=== PATIENT | female | born 1970 | race Caucasian/White ===

== ENCOUNTER 2017-09-24 09:00 | Outpatient (RCR) | payer MEDICAID, SELFPAY ==
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
--- NOTE | 2017-09-24 11:38 | BH.SGPN ---
Service Group Progress Note - Session Psychotherapy Session #1 Date Open:: 09/24/17 Time Started:: 09:08 Time Stopped:: 09:58 Targeted Problem #:: 1 Type of Group:: Process - 6 group members Goal of Group:: The goal of today's group was to check-in with client's mood, stressors, and positives, review homework and introduce topic for the day. Client Response/Progress/Benefit:: Client reported about a year ago she attended this IOP program however did not complete it. Client shared 1 of her goals is to attend the program consistently and finish it. Client shared over the past year [place] the country with her boyfriend which has been positive because she does not like to be in the city. However, client reported nothing else is really changed because she continues to sleep in order to avoid, isolate, and her relationships are still not positive. Client did also express she has been having some concerns that her belongings consistently keep going missing which makes her nervous and anxious as to what is happening. Client seemed to benefit from support from peers. Client's first day in [facility]. Eye Contact:: Fair Motor Activity:: Appropriate Appearance:: Casual Speech:: Appropriate Mood:: Anxious, Dysthymic Affect:: Constricted Thoughts:: Linear, No evidence of hallucinations/delusions noted Staff Interventions:: Therapist used open-ended questions to elicit information about client's current stressors and mood state. Therapist was supportive by using active listening and reflection.
--- NOTE | 2017-09-24 11:41 | BH.SGPN_ITS ---
Service Group Progress Note - Session Psychotherapy Session #1 Date Open:: 09/24/17 Time Started:: 09:08 Time Stopped:: 09:58 Targeted Problem #:: 1 Type of Group:: Process - 6 group members Goal of Group:: The goal of today's group was to check-in with client's mood, stressors, and positives, review homework and introduce topic for the day. Client Response/Progress/Benefit:: Client reported about a year ago she attended this IOP program however did not complete it. Client shared 1 of her goals is to attend the program consistently and finish it. Client shared over the past year she [place] the country with her boyfriend which has been positive because she does not like to be in the city. However, client reported nothing else is really changed because she continues to sleep in order to avoid , isolate, and her relationships are still not positive. Client did also express she has been having some concerns that her belongings consistently keep going missing which makes her nervous and anxious as to what is happening. Client seemed to benefit from support from peers. Client's first day in [facility]. Eye Contact:: Fair Motor Activity:: Appropriate Appearance:: Casual Speech:: Appropriate Mood:: Anxious, Dysthymic Affect:: Constricted Thoughts:: Linear, No evidence of hallucinations/delusions noted Staff Interventions:: Therapist used open-ended questions to elicit information about client's current stressors and mood state. Therapist was supportive by using active listening and reflection.
--- NOTE | 2017-09-24 14:36 | BH.SGPN ---
Service Group Progress Note - Session Psychotherapy Session #2 Date Open:: 09/24/17 - 5 group members Time Started:: 10:11 Time Stopped:: 11:06 Targeted Problem #:: 1 Type of Group:: Illness Management Goal of Group:: The goal of group was to increase understanding of coping strategies and impact problems have on self. Another goal was to practice utilizing coping skills in the moment. Client Response/Progress/Benefit:: Client responded well to session, active participant. Client connected with the quote sharing we make problems bigger if we dont cope with them. Client reported coping skills are how we process things and that one learns healthy and unhealthy coping skills from family, peers, and therapy. Client stated unhealthy coping skills can be drugs and alcohol. Client did well in the activity and appeared to connect that having a good base and balance of coping skills is important for mental wellness. Client agreed with group that one's coping skill base should include internal and external supports. Client shared her base is not balanced as client relies on her internal coping mostly as she lacks external support. Client reported wanting to learn healthier internal coping skills and increase her social supports. Client appeared to benefit from increasing awareness of how coping skills impact mental health. Progress noted in clients increased awareness. Clients first day, appears engaged and motivated, to continue IOP to promote mood stability. Eye Contact:: Good Motor Activity:: Appropriate Appearance:: Casual Speech:: Appropriate Mood:: Anxious, Dysthymic Affect:: Constricted Thoughts:: Linear, No evidence of hallucinations/delusions noted Staff Interventions:: Therapist facilitated the group discussion about coping strategies. Therapist provided group members with folders and gave them the challenge to work together and build the tallest tower with the given supplies. Therapist utilized the activity as a tool to process what it feels like when dealing with problems and what strategies they used to cope throughout activity. Psychotherapy Session #3 Date Open:: 09/24/17 - 6 group members Time Started:: 11:15 Time Stopped:: 12:15 Targeted Problem #:: 1 Type of Group:: Functional Skills Development Goal of Group:: Goal was to increase clients self-awareness on their use of coping strategies and increase repertoire of healthy coping strategies. Client Response/Progress/Benefit:: Client responded well to session, providing insight to discussion. Client reported she often relies on internal coping skills, even though they have not always been healthy, and would like to learn how to better cope with stress. Client helped the group process the pros and cons of the categories of coping skills and identify different strategies for each category. Client reported it is good to have a balance of all the coping skills, so one does not only distract from the problem. Client created a coping skills menu to increase her repertoire of healthy skills including: learning something new, walking, singing, cooking a meal for her health needs, and writing down negative thoughts and challenging them. Client appeared to benefit from improving her awareness of the different types of coping skills as well as increasing her coping skill repertoire. Progress limited as it is clients first day, to continue IOP to prevent decompensation and increase mood stability. Eye Contact:: Fair Motor Activity:: Appropriate Appearance:: Casual Speech:: Appropriate Mood:: Anxious, Dysthymic Affect:: Constricted Thoughts:: Linear, No evidence of hallucinations/delusions noted Staff Interventions:: Therapist facilitated discussion about the different types of coping skills. Therapist led group in an activity in which group members were asked to brainstorm coping strategies that fit in each coping skill category. Therapist reviewed each coping strategy with the group and led a discussion about whether the coping strategies identified were healthy or unhealthy. Therapist provided homework in which group members creating a coping skills menu and would practice two skills a day.
--- NOTE | 2017-09-24 14:42 | BH.SGPN_ITS ---
Service Group Progress Note - Session Psychotherapy Session #2 Date Open:: 09/24/17 - 5 group members Time Started:: 10:11 Time Stopped:: 11:06 Targeted Problem #:: 1 Type of Group:: Illness Management Goal of Group:: The goal of group was to increase understanding of coping strategies and impact problems have on self. Another goal was to practice utilizing coping skills in the moment. Client Response/Progress/Benefit:: Client responded well to session, active participant. Client connected with the quote sharing we make problems bigger if we don?t cope with them.? Client reported coping skills are ?how we process things? and that one learns healthy and unhealthy coping skills from family, peers, and therapy. Client stated unhealthy coping skills can be drugs and alcohol. Client did well in the activity and appeared to connect that having a good base and balance of coping skills is important for mental wellness. Client agreed with group that one's coping skill base should include internal and external supports. Client shared her base is not balanced as client relies on her internal coping mostly as she lacks external support. Client reported wanting to learn healthier internal coping skills and increase her social supports. Client appeared to benefit from increasing awareness of how coping skills impact mental health. Progress noted in client?s increased awareness. Client?s first day, appears engaged and motivated, to continue IOP to promote mood stability. Eye Contact:: Good Motor Activity:: Appropriate Appearance:: Casual Speech:: Appropriate Mood:: Anxious, Dysthymic Affect:: Constricted Thoughts:: Linear, No evidence of hallucinations/delusions noted Staff Interventions:: Therapist facilitated the group discussion about coping strategies. Therapist provided group members with folders and gave them the challenge to work together and build the tallest tower with the given supplies. Therapist utilized the activity as a tool to process what it feels like when dealing with problems and what strategies they used to cope throughout activity. Psychotherapy Session #3 Date Open:: 09/24/17 - 6 group members Time Started:: 11:15 Time Stopped:: 12:15 Targeted Problem #:: 1 Type of Group:: Functional Skills Development Goal of Group:: Goal was to increase client?s self-awareness on their use of coping strategies and increase repertoire of healthy coping strategies. Client Response/Progress/Benefit:: Client responded well to session, providing insight to discussion. Client reported she often relies on internal coping skills, even though they have not always been healthy, and would like to learn how to better cope with stress. Client helped the group process the pros and cons of the categories of coping skills and identify different strategies for each category. Client reported it is good to have a balance of all the coping skills, so one does not only distract from the problem. Client created a coping skills menu to increase her repertoire of healthy skills including: learning something new, walking, singing, cooking a meal for her health needs, and writing down negative thoughts and challenging them. Client appeared to benefit from improving her awareness of the different types of coping skills as well as increasing her coping skill repertoire. Progress limited as it is client?s first day, to continue IOP to prevent decompensation and increase mood stability. Eye Contact:: Fair Motor Activity:: Appropriate Appearance:: Casual Speech:: Appropriate Mood:: Anxious, Dysthymic Affect:: Constricted Thoughts:: Linear, No evidence of hallucinations/delusions noted Staff Interventions:: Therapist facilitated discussion about the different types of coping skills. Therapist led group in an activity in which group members were asked to brainstorm coping strategies that fit in each coping skill category. Therapist reviewed each coping strategy with the group and led a discussion about whether the coping strategies identified were healthy or unhealthy. Therapist provided homework in which group members creating a coping skills menu and would practice two skills a day.
--- NOTE | 2017-09-24 15:03 | BH.MDN_ITS ---
Multi-Disciplinary Note - Note 30-min Individual Time Started:: 12:17 Date: 09/24/17 Purpose of session/treatment goals addressed:: Purpose of today's session was to begin building rapport with Client as well as gather additional information regarding Client current symptoms, functioning and stressors, as well as means of coping and supports. Other topics include expectations for treatment and individual treatment goal planning. Eye Contact:: Good Motor Activity:: Restless Appearance:: Casual Speech:: Appropriate Mood:: Anxious, Depressed Affect:: Congruent Thoughts:: Other - preoccupied, No evidence of hallucinations/delusions noted Staff Interventions:: Therapist provided a safe environment for CLient to discuss current anxieties and concerns associated with current living situation. Asked open-ended and furthering questions to ellicit additional information regarding current functioning, symptoms, and supports. Applied Motivational Interviewing techniques to determine Client problem recognition and motivation to improve management of mental health symptoms. Worked with client to explore and begin establishing IOP treatment goals. Client Response:: Client reported she is doing okay in her current living situation; however, continues to experience significant ups and downs in current relationship with her partner of 5 years. Client indicates that the ongoing mistrust and failed communication within her relationship has caused Client significant stress and anxiety. Client indicates becoming preoccupied with the thought that her partner may be monitoring her via social media and through her cell phone. CLient went into detail regarding the research she has done and reasons she believes her phone is being monitored. CLient indicated confronting her partner about these thoughts but reports he denies any knowledge of client accusations. Client additionally expressed at times believing her partner has elicited help in tracking her from her old friend and roommate for roommate to seek revenge from a previous falling out. Client's thought patterns appeared mostly fixated on obtaining answers from her partner and friend related to these accusations. Client reports worry has escalated to her smashing my old phone and changing email multiple times to prevent ongoing monitoring. CLient expresses some insight into paranoia however intensity and severity of these thoughts remains unclear. Client understandable that IOP program and IOP therapist role is not to help her figure out if her partner is acting as Client suspects. CLient indicates wanting to work on developing skills while in IOP program, she reports specifically desiring focus on decreasing anxiety and improving ability to challenge negative/ distorted thinking patterns. Risks/Concerns:: No risks or concerns at this time. CLient denies suicidal ideation, plan, or intent as of 09/24/17 and indicates maintaining sobriety. Client is currently not taking any prescribed medications which will be reviewed when CLient meets with psychiatrist during next appointment, 09/26/17. CLient indicates her daughters and desire to improve overall mental health as motivations for change. Indicates ability to maintain safety and is aware of and willing to utilize local crisis resources should she need to. Progress Toward Goals/Plan:: Began to develop goals for treatment plan. Client progress is limited as this was her first day in IOP program. Client reports being glad she decided to return to program and expressed a desire to improve ability to use healthy skills for managing mental health symptoms. Client reports willingness to try new options for managing anxiety and stress outside of unhealthy coping mechanisms. Recommended continued IOP tx to maintain safety , stabilize emotions, and prevent decompensation. Time Stopped:: 12:51
--- NOTE | 2017-09-24 15:10 | BH.MTP ---
Master Treatment Plan - Patient Information Program Physician:: Vidya Benito Primary Therapist:: HERI Prajapati - Psychiatric Diagnoses Psychiatric Diagnoses:: Bipolar II Diagnosis Code(s):: F31.81 - Estimated LOS Estimated LOS (in weeks):: 6 Problem/Goal #1 - Problem/Goal #1 Stated Goal:: Client will increase mood stability and decrease depressive symptoms that cause anger/irritability, isolation, and suicidal ideation due to Bipolar 2 through Intensive Outpatient Program. Description of Barriers: Client has had significant difficulty with continuing to follow through with counseling in the past, she has difficulties in justifying not attending or convinces herelf that she does not need the help. Client additionally discussed struggling with trusting others and beliefs that others do not have her best interests at heart. This could make establishing rapport and encouraging CLient to continue engaging in counseling difficult. Client reposts limites supports and indicates that her largest support, CLient's significant other, is not supportive of her attending counseling for her managing mental health sx. Transportation and isolation continues to be an ongoing barrier to client's treatment. Functional Impact: Client's ongoing depression effects daily functioning as she reports difficulties in maintaining motivation and often isolates from others. Client additionally shared not completing daily tasks due to sleeping for large portions of the day which increases negative self talk and impacts self-esteem levels. Goal Relevant Strengths/Supports: Client is able to identify personal strengths and expresses being motivated to make changes. She has previous experience with engaging in counseling services and is able to identify benefits of developing health skills for managing mental health symptoms. - Objectives Objective #1 Stated Objective: Client will identify and replace 2-3 negative thinking patterns that mediate feelings of hopelessness and helplessness Interventions: Through groups and individual therapy, pt. will be provided with education on cognitive distortions, mistaken beliefs, and identifying and combating negative self-talk. Therapist will help pt. explore connection between thoughts, feelings, and actions. Discharge Criteria: Pt. will be able to identify 2-3 negative thinking patterns and be able to effectively stop, challenge, or cope with those negative thoughts. Target Date: 11/05/17 Review Date: 10/29/17 Objective #2 Stated Objective: Client will identify 2-3 triggers and 2-3 new ways to navigate stressful situations rather than becoming irrational and losing temper. Interventions: Therapist will use motivational interviewing, and help client make changes in life to encourage more responsible and rational behavior, ways to manage emotions in stressful situations, and feel more confident in himself. Discharge Criteria: Client will have met this goal when he is able to describe less than 2 irrational reactions in a week, and at least 2 new ways to handle these stressful situations. Target Date: 11/05/17 Review Date: 10/29/17 Problem/Goal #2 - Problem/Goal #2 Stated Goal:: Stabilize anxiety level while increasing ability to function and decreasing ruminative thoughts on a daily basis through Intensive Outpatient Program. Description of Barriers: Client has had significant difficulty with continuing to follow through with counseling in the past, she has difficulties in justifying not attending or convinces herelf that she does not need the help. Client additionally discussed struggling with trusting others and beliefs that others do not have her best interests at heart. This could make establishing rapport and encouraging CLient to continue engaging in counseling difficult. Client reposts limites supports and indicates that her largest support, CLient's significant other, is not supportive of her attending counseling for her managing mental health sx. Transportation and isolation continues to be an ongoing barrier to client's treatment. Functional Impact: Client reports that her anxiety has impacted her ability to function at baseline as she has often isolated or minimized contact with others due to increased fear/paraniod thoughts regarding other's intentions. CLient indicates increase ruminating and intrusive thoughts have impacted her relationships and created additional tension with supports. Goal Relevant Strengths/Supports: Client is able to identify personal strengths and expresses being motivated to make changes. She has previous experience with engaging in counseling services and is able to identify benefits of developing health skills for managing mental health symptoms. - Objectives Objective #1 Stated Objective: Client will identify 2-3 anxiety triggers and 2 coping skills to use when feeling anxious. Interventions: Therapist will encourage client to use self-awareness strategies and assist client in developing coping strategies to manage ruminating thoughts. Discharge Criteria: Client will have met this goal when can identify at least 2 triggers and 2 ways to cope with anxieties. Target Date: 11/05/17 Review Date: 10/29/17 Objective #2 Stated Objective: Client will learn and implement 2-3 effective communication skills to empower client to communicate thoughts and feelings. Interventions: Therapist will teach client effective communication skills and will provide homework for client to practice communication skills outside of sessions. Discharge Criteria: Client will have successfully achieved goal when she can identify at least 2 effective communication strategies and implement these on a consistent basis. Target Date: 11/05/17 Review Date: 10/29/17
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
--- NOTE | 2017-09-26 08:16 | BH.COMM ---
Communication Note - Communication with Client Communication Note: Pt left message this AM cancelling for today therefore was not able to be seen by psychiatry. Reports that she would attend her next scheduled IOP session which is 10/06/17. Transportation is an issue with pt and she is using hospital based transportation. Will attempt to contact pt next week to discuss if she is able to arrange transportation to program earlier than 10/06/17.
--- NOTE | 2017-09-26 14:37 | BH.COMM ---
Communication Note - Communication with Client Communication Note: Client called
--- NOTE | 2017-10-27 15:07 | BH.MTP_ITS ---
Master Treatment Plan - Patient Information Program Physician:: Vidya Benito Primary Therapist:: HERI Prajapati - Psychiatric Diagnoses Psychiatric Diagnoses:: Bipolar II Diagnosis Code(s):: F31.81 - Estimated LOS Estimated LOS (in weeks):: 6 Problem/Goal #1 - Problem/Goal #1 Stated Goal:: Client will increase mood stability and decrease depressive symptoms that cause anger/irritability, isolation, and suicidal ideation due to Bipolar 2 through Intensive Outpatient Program. Description of Barriers: Client has had significant difficulty with continuing to follow through with counseling in the past, she has difficulties in justifying not attending or convinces herelf that she does not need the help. Client additionally discussed struggling with trusting others and beliefs that others do not have her best interests at heart. This could make establishing rapport and encouraging CLient to continue engaging in counseling difficult. Client reposts limites supports and indicates that her largest support, CLient' s significant other, is not supportive of her attending counseling for her managing mental health sx. Transportation and isolation continues to be an ongoing barrier to client's treatment. Functional Impact: Client's ongoing depression effects daily functioning as she reports difficulties in maintaining motivation and often isolates from others. Client additionally shared not completing daily tasks due to sleeping for large portions of the day which increases negative self talk and impacts self-esteem levels. Goal Relevant Strengths/Supports: Client is able to identify personal strengths and expresses being motivated to make changes. She has previous experience with engaging in counseling services and is able to identify benefits of developing health skills for managing mental health symptoms. - Objectives Objective #1 Stated Objective: Client will identify and replace 2-3 negative thinking patterns that mediate feelings of hopelessness and helplessness. Interventions: Through groups and individual therapy, pt. will be provided with education on cognitive distortions, mistaken beliefs, and identifying and combating negative self-talk. Therapist will help pt. explore connection between thoughts, feelings, and actions. Discharge Criteria: Pt. will be able to identify 2-3 negative thinking patterns and be able to effectively stop, challenge, or cope with those negative thoughts. Target Date: 11/05/17 Review Date: 10/29/17 Objective #2 Stated Objective: Client will identify 2-3 triggers and 2-3 new ways to navigate stressful situations rather than becoming irrational and losing temper. Interventions: Therapist will use motivational interviewing, and help client make changes in life to encourage more responsible and rational behavior, ways to manage emotions in stressful situations, and feel more confident in himself. Discharge Criteria: Client will have met this goal when he is able to describe less than 2 irrational reactions in a week, and at least 2 new ways to handle these stressful situations. Target Date: 11/05/17 Review Date: 10/22/17 Problem/Goal #2 - Problem/Goal #2 Stated Goal:: Stabilize anxiety level while increasing ability to function and decreasing ruminative thoughts on a daily basis through Intensive Outpatient Program. Description of Barriers: Client has had significant difficulty with continuing to follow through with counseling in the past, she has difficulties in justifying not attending or convinces herelf that she does not need the help. Client additionally discussed struggling with trusting others and beliefs that others do not have her best interests at heart. This could make establishing rapport and encouraging CLient to continue engaging in counseling difficult. Client reposts limites supports and indicates that her largest support, CLient' s significant other, is not supportive of her attending counseling for her managing mental health sx. Transportation and isolation continues to be an ongoing barrier to client's treatment. Functional Impact: Client reports that her anxiety has impacted her ability to function at baseline as she has often isolated or minimized contact with others due to increased fear/paraniod thoughts regarding other's intentions. CLient indicates increase ruminating and intrusive thoughts have impacted her relationships and created additional tension with supports. Goal Relevant Strengths/Supports: Client is able to identify personal strengths and expresses being motivated to make changes. She has previous experience with engaging in counseling services and is able to identify benefits of developing health skills for managing mental health symptoms. - Objectives Objective #1 Stated Objective: Client will identify 2-3 anxiety triggers and 2 coping skills to use when feeling anxious. Interventions: Therapist will encourage client to use self-awareness strategies and assist client in developing coping strategies to manage ruminating thoughts. Discharge Criteria: Client will have met this goal when can identify at least 2 triggers and 2 ways to cope with anxieties. Target Date: 11/05/17 Review Date: 10/22/17 Objective #2 Stated Objective: Client will learn and implement 2-3 effective communication skills to empower client to communicate thoughts and feelings. Interventions: Therapist will teach client effective communication skills and will provide homework for client to practice communication skills outside of sessions. Discharge Criteria: Client will have successfully achieved goal when she can identify at least 2 effective communication strategies and implement these on a consistent basis. Target Date: 11/05/17 Review Date: 10/29/17
== END 2017-10-02 23:59 ==
LOC: BHIOP 09:00
PROVIDERS: Family Provider Student in an Organized Health Care Education/Training Program; PCP Student in an Organized Health Care Education/Training Program; Visit Provider Psychiatry & Neurology Psychiatry
DX: F31.81 Bipolar II disorder (principal)
CPT/HCPCS: H0035; H2020; 90832

== ENCOUNTER 2017-10-06 09:00 | Outpatient (RCR) | payer MEDICAID, SELFPAY ==
--- NOTE | 2017-10-06 09:00 | DT_ITS ---
This patient was seen during an EMR downtime October 06, 2017 - October 13, 2017. This patient may have a combination of paper and electronic documentation or all paper documentation. All documentation is viewable within the e-chart portion of [employer] for each patient visit.
--- NOTE | 2017-10-06 15:19 | BH.SGPN ---
Service Group Progress Note - Session Psychotherapy Session #1 Date Open:: 10/06/17 Time Started:: 09:07 Time Stopped:: 10:20 Targeted Problem #:: 1 Type of Group:: Process - 9 participants Behaviors/Verbalizations/Mental Status:: The goal of today's group was to check-in with clients and review homework from previous group session. Client Response/Progress/Benefit:: Client was a well engaged participant and positive throughout. She expressed feeling happy today as she had been able to see one of her daughters over the weekend and may have the opportunity to spend time with another daughter later today. She shared that the visit had been especially positive as her daughter appears to be sober and indicated she would be starting a new job. Client shared that seeing her kids doing well is a major motivating factor to begin focusing on her own mental health as well. Client making progress in her ability to recognize that she cannot be there for her children if she doesnt take the time to address her own mental health needs and benefitted from utilizing her time to process this with the group. She is recommended continued IOP to prevent decompensation and begin working on establishing consistent healthy skills client may use when experiencing emotional dysregulation. Eye Contact:: Good Motor Activity:: Appropriate Appearance:: Casual Speech:: Appropriate Mood:: Euthymic Affect:: Congruent Thoughts:: Linear, Logical, No evidence of hallucinations/delusions noted Staff Interventions:: Therapist facilitated the group session by asking open ended questions that encouraged group members to discuss their weekend and current mood state. Assisted group members in the review of their homework from previous group session.
--- NOTE | 2017-10-10 17:24 | BH.SGPN ---
Service Group Progress Note - Session Psychotherapy Session #3 Date Open:: 10/10/17 - 8 group members Time Started:: 11:30 Time Stopped:: 12:25 Targeted Problem #:: 1 Type of Group:: Functional Skills Development Goal of Group:: The goal of this session was to create a 30 day action plan that provides small goals that work towards taking action on one thing they would like to take back control over. Client Response/Progress/Benefit:: Client responded well to session, active participant. Client created a 30-day action plan to promote emotional wellness and take back control over her mental health. Client's goal for the next 30 days is no more procrastination and isolation from supports. Client shared this plan will benefit client as she will be more positive, feel more connected to her supports, and less depressed and anxious if she follows it. Client's steps included reaching out to at least one support a day, avoiding negative social media, and using positive self-talk daily. Client appeared to benefit from identifying a 30-day goal that will improve her mental wellness. Progress limited as clients attendance has been inconsistent which may impact clients ability to learn and apply coping skills learned in group. Client to continue IOP to prevent decompensation. Eye Contact:: Good Motor Activity:: Restless Appearance:: Casual Speech:: Appropriate Mood:: Euthymic Affect:: Congruent Thoughts:: Linear, Logical, No evidence of hallucinations/delusions noted Staff Interventions:: Therapist provided materials and guidance to help clients create a 30 day action plan. Therapist provided support by giving feedback and using active listening.
--- NOTE | 2017-10-13 15:41 | BH.SGPN_ITS ---
Service Group Progress Note - Session Psychotherapy Session #2 Date Open:: 10/06/17 Time Started:: 10:25 Time Stopped:: 11:15 Targeted Problem #:: 1 Type of Group:: Illness Management Goal of Group:: To increase understanding of pitfalls and impact can have on mental health. Client Response/Progress/Benefit:: Client contributed positively to discussion and listened attentively to others. Client connected with others about difficulty of making changes when it?s easier and more comfortable to continue doing what you know. Client identified toxic relationships to be a barrier to making positive changes. Client shared she has been involved in various toxic relationships in which the other person is controlling and makes it extremely difficult to make positive changes. Client worked cooperatively with peers during challenge activity connected importance of communication, self-awareness and support on being able to avoid falling in personal pitfalls. Client seemed to benefit from increasing awareness of impact pitfalls can have on progress. Client to continue IOP level of care to decrease depressive symptoms, increase confidence, and prevent decompensation. Eye Contact:: Good Motor Activity:: Appropriate Appearance:: Casual Speech:: Appropriate Mood:: Anxious Affect:: Constricted Thoughts:: Linear, No evidence of hallucinations/delusions noted Staff Interventions:: Therapist facilitated discussion about pitfalls and assisted group in identifying common pitfalls that can set you back. Therapist led group in an activity to help group understand impact pitfalls can have on oneself and identify strategies that could help you get back on the right path. Therapist provided support by using active listening and providing feedback.
--- NOTE | 2017-10-14 17:25 | BH.SGPN_ITS ---
Service Group Progress Note - Session Psychotherapy Session #3 Date Open:: 10/10/17 - 8 group members Time Started:: 11:30 Time Stopped:: 12:25 Targeted Problem #:: 1 Type of Group:: Functional Skills Development Goal of Group:: The goal of this session was to create a 30 day action plan that provides small goals that work towards taking action on one thing they would like to take back control over. Client Response/Progress/Benefit:: Client responded well to session, active participant. Client created a 30-day action plan to promote emotional wellness and take back control over her mental health. Client's goal for the next 30 days is no more procrastination and isolation from supports. Client shared this plan will benefit client as she will be more positive, feel more connected to her supports, and less depressed and anxious if she follows it. Client's steps included reaching out to at least one support a day, avoiding negative social media, and using positive self-talk daily. Client appeared to benefit from identifying a 30-day goal that will improve her mental wellness. Progress limited as client?s attendance has been inconsistent which may impact client?s ability to learn and apply coping skills learned in group. Client to continue IOP to prevent decompensation. Eye Contact:: Good Motor Activity:: Restless Appearance:: Casual Speech:: Appropriate Mood:: Euthymic Affect:: Congruent Thoughts:: Linear, Logical, No evidence of hallucinations/delusions noted Staff Interventions:: Therapist provided materials and guidance to help clients create a 30 day action plan. Therapist provided support by giving feedback and using active listening.
--- NOTE | 2017-10-15 10:36 | BH.COMM ---
Communication Note - Communication with Client Communication Note: Therapist called to follow-up with CLient as she cancelled both appointments scheduled for Friday and friday of this week (10/13 & 10/14). CLient indicated that she had cancelled due to increased anxiety and irritability which caused her to not want to be around other people. She attributes this change in mood to continued conflict with her partner as client expressed feeling as though she she is being controlled. She went on to explain beliefs that her phone has been hacked so that her boyfriend may monitor Client phone. Client further discussed potential proof of this occuring at length. Client thought content suggests themes of paranoid thinking, however exact nature and intensity of thoughts remains unknown. Despite current beliefs she is being monitored, CLient indicates feeling safe in her home and denies any thoughts of harming herself or others. She is future oriented and expressed plans to speak with an old friend from when client was growning up this afternoon. CLient shared knowing that isolation may not be the healthiest means of coping but it is what she is used to doing. CLient indicates willingness to attend next scheduled appointment for group and individual session on 10/16. Therapist will follow-up.
--- NOTE | 2017-10-16 10:46 | BH.COMM ---
Communication Note - Communication with Client Communication Note: Client did not show for transportation this morning and did not answer when this therapist attempted to follow-up. Client has a history of cancellations and no shows for appointments. Due to Client missing the past three scheduled appointments without cancellation, she will be discharged from the IOP program at this time. Client does not appear to be a risk to self or others. She denied suicidal ideation, plan, or intent per conversation with this therapist on the previous date, 10/14/17. At that time client additionally indicated feeling safe in her home and was future oriented expressing plans to see her daughter this weekend. Therapist left information for local counseling resources and encouraged Client to return this therapists phone call.
--- NOTE | 2017-10-16 10:57 | BH.DS ---
Discharge Summary - Demographics Date of Admission:: 09/24/17 Discharge Date: 10/16/17 Presenting Problems at Admission:: Client is a 46 year old female previously admitted to the IOP program one year ago following hospitalization due to substance use and increased suicidal ideation following an attempt while intoxicated. Client referred self back to IOP program due to worsening symptoms of depression and anxiety, fleeting SI, and isolative behaviors. At time of current admission, Client reports she has not been receiving outside counseling services and denies taking psychiatric medication. Client denies active suicidal ideation, plan, or intent; however, reported recent thoughts of method via hanging. Client indicated I would never do it because of my kids. Client reports current sx include increased sleep, decreased energy and motivation, isolation, increased appetite, hopelessness, and worthlessness. CLient reports currently she sleeps all day and has constant anxiety. Reports fears that her boyfriend, whom client identifies as a support, may be monitoring her phone which has increased overall anxiety levels. Mentions thought patterns consistent with mild paranoia including client phone being tracked or hacked and beliefs that others may be conspiring against her which has led client to get rid of 3 previous phones and disconnect from social media. CLient denies any HI. Hx of polysubstance use but reports current sobriety for past 3 months. Discharge Diagnoses:: Bipolar 2 disorder. Anxiety unspecified Reason for Discharge:: Lack of consistent attendance preventing progress. Client has had multiple no shows and cancellations. She did not show for the last three scheduled appointments. Several attempts to contact patient however no response. Client left a message listing local resources available. - Treatment Progress During Treatment & Response: Limited progress noted due to client inconsistent attendance. She reports that when in attendance and participating in both individual and group sessions she is able to see improvements in her mood, feels more supported, and is taking away helpful information on improving symptom management and coping. Client displayed some improvements in level of awareness regarding the consequences of isolation on mental health as well as benefits from implementing thought challenging strategies during times of increased negative or paranoid thinking; however, due to lack of attendance client was unable to continue to work with therapist on promoting use of thought challenge strategies. Issues Still to be Addressed:: Pt would benefit from engaging in ongoing and consistent counseling to address depressive symptoms, constant anxiety with paranoid thinking patterns, and passive suicidal ideations. Client reports she was not functioning at baseline when she entered the program and was unable to make progress significant enough to return client to a healthy baseline prior to discharge. Discharge Recommendations/Instructions:: This therapist discussed the importance of regular counseling and psychiatry with client throughout her admission in IOP program; however, was unable to discuss discharge recommendations with the patient as she would not return phone calls. Therapist left information for local counseling and psychiatry resources and encouraged Client to return this therapists phone calls for further resource information. Discharge Handout: Complete Discharge Handout with client on aftercare options and continuity of care.
--- NOTE | 2017-10-21 15:21 | BH.SGPN_ITS ---
Service Group Progress Note - Session Psychotherapy Session #1 Date Open:: 10/06/17 Time Started:: 09:07 Time Stopped:: 10:20 Targeted Problem #:: 1 Type of Group:: Process - 9 participants Behaviors/Verbalizations/Mental Status:: The goal of today's group was to check- in with clients and review homework from previous group session. Client Response/Progress/Benefit:: Client was a well engaged participant and positive throughout. She expressed feeling happy today as she had been able to see one of her daughters over the weekend and may have the opportunity to spend time with another daughter later today. She shared that the visit had been especially positive as her daughter appears to be sober and indicated she would be starting a new job. Client shared that seeing her kids doing well is a major motivating factor to begin focusing on her own mental health as well. Client making progress in her ability to recognize that she cannot be there for her children if she doesn?t take the time to address her own mental health needs and benefitted from utilizing her time to process this with the group. She is recommended continued IOP to prevent decompensation and begin working on establishing consistent healthy skills client may use when experiencing emotional dysregulation. Eye Contact:: Good Motor Activity:: Appropriate Appearance:: Casual Speech:: Appropriate Mood:: Euthymic Affect:: Congruent Thoughts:: Linear, Logical, No evidence of hallucinations/delusions noted Staff Interventions:: Therapist facilitated the group session by asking open ended questions that encouraged group members to discuss their weekend and current mood state. Assisted group members in the review of their homework from previous group session.
== END 2017-11-01 23:59 ==
LOC: BHIOP 09:00
PROVIDERS: Family Provider Student in an Organized Health Care Education/Training Program; PCP Student in an Organized Health Care Education/Training Program; Visit Provider Psychiatry & Neurology Psychiatry
DX: F31.81 Bipolar II disorder (principal); F41.9 Anxiety disorder, unspecified
CPT/HCPCS: 90833; 99214; H0035; H2012; T1002; 90834